=== PATIENT | male | born 1965 | race Caucasian/White ===

== ENCOUNTER 2022-02-24 10:38 | Outpatient (CLI) | payer BC, OTHER | END 2022-02-24 10:39 | disposition home or self-care (01) | LOC: CSHRAD 10:38 | PROVIDERS: ATTEND Family Medicine | DX: R10.9 Unspecified abdominal pain (principal) | CPT/HCPCS: 71120 ==

== ENCOUNTER 2022-03-09 08:15 | Outpatient (CLI) | payer BC, OTHER | END 2022-03-09 08:16 | disposition home or self-care (01) | LOC: CSHULT 08:15 | PROVIDERS: ATTEND Family Medicine | DX: R10.9 Unspecified abdominal pain (principal) | CPT/HCPCS: 76700 ==

== ENCOUNTER 2022-04-15 17:50 | Inpatient (IN) | payer BC, OTHER ==
[2022-04-15 18:35] LABS: #Basophils 0.1 10x3/uL (0.0-0.2); #Eosinphils 0.7 10x3/uL (0.0-0.5); #Monocytes 0.6 10x3/uL (0.0-1.1); #Neutrophils 7.8 10x3/uL (1.5-8.4); %Basophils 0.8 % (0.0-2.0); %Eosinophils 6.5 % (0.0-6.0); %Lymphocytes 15.6 % (18.0-47.0); %Monocytes 5.5 % (0.0-10.0); %Neutrophils 71.4 % (40.0-75.0); Hemoglobin 14.7 g/dL (13.5-17.5); Mean Corpuscular HGB CONC 34.9 g/dL (32.0-36.0); Mean Corpuscular Hemoglobin 29.8 pg (27.0-33.0); Mean Corpuscular Volume 85.2 fl (81.2-95.1); Mean Platelet Volume 11.5 fl (7.4-10.4); Platelet Count 225 10x3/uL (150-450); RBC Distribution Width 12.7 % (11.5-14.5); Red Blood Cell (RBC) Count 4.94 10x6/uL (4.32-5.72); White Blood Cell (WBC) Count 10.9 10x3/uL (3.5-10.5)
[2022-04-15 18:49] LABS: ALT (SGPT) 9 U/L (8-55); AST (SGOT) 13 U/L (5-34); Albumin 3.8 g/dL (3.5-5.0); Alkaline Phosphatase 101 U/L (40-110); Anion Gap 14 mmol/L (10-20); BUN (Urea Nitrogen) 24 mg/dL (8.4-25.7); Bilirubin, Total 0.7 mg/dL (0.2-1.2); Calc. Creatinine Clearance 0 mL/min (70-130); Calcium 9.8 mg/dL (7.8-10.44); Carbon Dioxide 32 mmol/L (22-29); Chloride 96 mmol/L (98-107); Estimated GFR 62; Globulin 3.4 g/dL (2.4-3.5); Glucose 283 mg/dL (70-105); Potassium 3.9 mmol/L (3.5-5.1); Protein, Total 7.2 g/dL (6.0-8.3); Sodium 138 mmol/L (136-145)
[2022-04-15] MEDS ORDERED: hydrALAZINE 20 MG/ML VIAL ONE ×2 (19:05→23:23)
[2022-04-15 19:09] LABS: CKMB 3.6 ng/mL (0-6.6)
[2022-04-15] MEDS ORDERED: Labetalol HCl 100 MG/20 ML VIAL ONE (19:37)
[2022-04-15] MEDS ORDERED: Ondansetron PF 4 MG/2 ML Vial ONE ×2 (19:55→22:28)
[2022-04-15] MEDS ORDERED: Aspirin Chewable 81 MG TAB ONE (20:22)
[2022-04-15] MEDS ORDERED: Acetaminophen 325 MG TAB PO PRN (20:34)
[2022-04-15] MEDS ORDERED: Dextrose 5% in Water 1,000 ML IV PRN (20:36)
[2022-04-15] MEDS ORDERED: HumaLOG 300 UNITS/3 ML VIAL SC PRN (20:36)
[2022-04-15] MEDS ORDERED: Dextrose 50% Abboject 50 ML SYRINGE SLOW IVP PRN (20:36)
[2022-04-15] MEDS ORDERED: Amlodipine 5 MG TAB PO SCH (21:15)
[2022-04-15] MEDS ORDERED: Amlodipine 5 MG TAB ONE (21:34)
[2022-04-15] MEDS: Sodium Chloride 0.9% 1,000 ML IV SCH (21:41)
[2022-04-15] MEDS ORDERED: Meclizine HCl 25 MG TAB PO SCH (22:30)
[2022-04-15] MEDS: Ondansetron PF 4 MG/2 ML Vial IVP PRN (22:32)
[2022-04-15] MEDS ORDERED: Meclizine HCl 25 MG TAB ONE (22:46)
[2022-04-15] MEDS: hydrALAZINE 20 MG/ML VIAL SLOW IVP PRN (23:24)
[2022-04-16] MEDS ORDERED: Promethazine HCl 12.5 MG in Sodium Chloride 0.9% 50 ML IVPB SCH (00:45)
[2022-04-16 01:15] LABS: Troponin I 0.027 ng/mL (< 0.028)
[2022-04-16] MEDS ORDERED: Promethazine HCl 25 MG/ML VIAL ONE (03:21)
[2022-04-16 03:57] LABS: #Basophils 0.1 10x3/uL (0.0-0.2); #Eosinphils 0.2 10x3/uL (0.0-0.5); #Monocytes 0.5 10x3/uL (0.0-1.1); #Neutrophils 10.5 10x3/uL (1.5-8.4); %Basophils 0.6 % (0.0-2.0); %Eosinophils 1.4 % (0.0-6.0); %Lymphocytes 9.9 % (18.0-47.0); %Neutrophils 83.6 % (40.0-75.0); Hemoglobin 14.5 g/dL (13.5-17.5); Mean Corpuscular HGB CONC 34.2 g/dL (32.0-36.0); Mean Corpuscular Hemoglobin 29.7 pg (27.0-33.0); Mean Corpuscular Volume 86.7 fl (81.2-95.1); Platelet Count 255 10x3/uL (150-450); RBC Distribution Width 12.6 % (11.5-14.5); Red Blood Cell (RBC) Count 4.89 10x6/uL (4.32-5.72); White Blood Cell (WBC) Count 12.6 10x3/uL (3.5-10.5)
[2022-04-16 04:17] LABS: Anion Gap 19 mmol/L (10-20); BUN (Urea Nitrogen) 25 mg/dL (8.4-25.7); Calc. Creatinine Clearance 0 mL/min (70-130); Calcium 10.2 mg/dL (7.8-10.44); Carbon Dioxide 28 mmol/L (22-29); Cardiac Risk 6.2 (Less than 4.5); Chloride 98 mmol/L (98-107); Cholesterol 234 mg/dl (< 200 Desired); Estimated GFR 69; Glucose 258 mg/dL (70-105); HDL Cholesterol 38 mg/dL (>60 Neg Risk); LDL Cholesterol, Calculated 172 mg/dL; Potassium 3.9 mmol/L (3.5-5.1); Sodium 141 mmol/L (136-145); Triglycerides 120 mg/dL (Less than 150)
[2022-04-16] MEDS ORDERED: hydrALAZINE 20 MG/ML VIAL ONE ×2 (04:58→10:16)
[2022-04-16] MEDS: hydrALAZINE 20 MG/ML VIAL SLOW IVP PRN ×3 (05:02→16:32)
[2022-04-16 05:37] VITALS: BMI 40.6
[2022-04-16] MEDS: HumaLOG 300 UNITS/3 ML VIAL SC PRN ×3 (05:41→16:32)
[2022-04-16] MEDS ORDERED: HumaLOG 300 UNITS/3 ML VIAL ONE (05:43)
[2022-04-16 07:05] LABS: Magnesium 1.6 mg/dL (1.6-2.6)
[2022-04-16] MEDS ORDERED: Amlodipine 5 MG TAB PO SCH ×2 (09:00→21:00)
[2022-04-16] MEDS ORDERED: Magnesium 2 GM/50 ML(in water) 2 GM in Premix Bag 1 BAG IVPB SCH ×2 (09:00→18:00)
[2022-04-16] MEDS ORDERED: Enoxaparin Sodium 40 MG/0.4 ML SYRINGE ONE (10:16)
[2022-04-16] MEDS ORDERED: Amlodipine 5 MG TAB ONE (10:17)
[2022-04-16] MEDS ORDERED: Magnesium 2 GM/50 ML BAG (IN WATER) ONE (10:17)
[2022-04-16] MEDS: Enoxaparin Sodium 40 MG/0.4 ML SYRINGE SC SCH (10:30)
[2022-04-16] MEDS: Sodium Chloride 0.9% 1,000 ML IV SCH ×2 (11:30→18:34)
[2022-04-16 11:59] LABS: Hemoglobin A1c 8.6 % (4.0-6.0)
[2022-04-16 15:39] LABS: Bilirubin Neg (Negative); Blood, Urine Negative (Negative); Clarity Clear (Clear); Glucose, Urine (Dipstick) 250 mg/dL (Negative); Ketone, Urine 15 mg/dL (Negative); Leukocyte Negative (Negative); Nitrite Negative (Negative); Protein, Urine (Dipstick) 500 mg/dl (Neg-Trace)
[2022-04-16 15:56] LABS: Bacteria/HPF 1+ HPF (None Seen); Mucous/LPF 1+ LPF (<2+); RBC/HPF None Seen HPF (0-3); Squamous Epithelial 0-3 HPF (0-3); WBC/HPF 0-3 HPF (0-3)
[2022-04-16] MEDS: Ondansetron PF 4 MG/2 ML Vial IVP PRN (17:03)
[2022-04-16] MEDS ORDERED: NIFEdipine XL 60 MG TAB PO SCH (19:00)
[2022-04-16] MEDS ORDERED: Lantus 1000 UNITS/10 ML VIAL SC SCH (21:00)
[2022-04-16] MEDS: Lisinopril 20 MG TAB PO SCH (21:20)
[2022-04-16] MEDS: Atorvastatin Calcium 40 MG TAB PO SCH (21:20)
[2022-04-16] MEDS: HumaLOG 300 UNITS/3 ML VIAL SC SCH (21:34)
[2022-04-17 04:09] LABS: Anion Gap 12 mmol/L (10-20); BUN (Urea Nitrogen) 22 mg/dL (8.4-25.7); Calc. Creatinine Clearance 148 mL/min (70-130); Carbon Dioxide 32 mmol/L (22-29); Chloride 100 mmol/L (98-107); Estimated GFR 80; Glucose 124 mg/dL (70-105); Magnesium 1.9 mg/dL (1.6-2.6); Potassium 3.1 mmol/L (3.5-5.1); Sodium 141 mmol/L (136-145)
[2022-04-17 04:11] LABS: #Basophils 0.1 10x3/uL (0.0-0.2); #Eosinphils 0.5 10x3/uL (0.0-0.5); #Monocytes 1.1 10x3/uL (0.0-1.1); #Neutrophils 10.7 10x3/uL (1.5-8.4); %Basophils 0.6 % (0.0-2.0); %Eosinophils 3.3 % (0.0-6.0); %Monocytes 7.5 % (0.0-10.0); %Neutrophils 75.1 % (40.0-75.0); Hemoglobin 14.4 g/dL (13.5-17.5); Mean Corpuscular HGB CONC 33.8 g/dL (32.0-36.0); Mean Corpuscular Volume 88.8 fl (81.2-95.1); Mean Platelet Volume 11.6 fl (7.4-10.4); Platelet Count 259 10x3/uL (150-450); White Blood Cell (WBC) Count 14.3 10x3/uL (3.5-10.5)
[2022-04-17] MEDS: hydrALAZINE 20 MG/ML VIAL SLOW IVP PRN ×2 (05:17→23:32)
[2022-04-17] MEDS ORDERED: Potassium Chloride 20 MEQ TAB PO SCH (08:00)
[2022-04-17] MEDS ORDERED: Lantus 1000 UNITS/10 ML VIAL SC SCH (09:00)
[2022-04-17] MEDS ORDERED: NIFEdipine XL 60 MG TAB PO SCH (09:00)
[2022-04-17] MEDS ORDERED: Lisinopril 10 MG TAB PO SCH (09:00)
[2022-04-17] MEDS: Enoxaparin Sodium 40 MG/0.4 ML SYRINGE SC SCH (10:17)
[2022-04-17] MEDS: Aspirin 81 mg Enteric Coated Tablet PO SCH (10:18)
[2022-04-17] MEDS: Gabapentin 300 MG CAP PO SCH (10:18)
[2022-04-17] MEDS: Lantus 1000 UNITS/10 ML VIAL SC SCH ×2 (10:19→10:34)
[2022-04-17] MEDS: Lisinopril 20 MG TAB PO SCH ×2 (10:20→23:32)
[2022-04-17] MEDS ORDERED: NIFEdipine XL 30 MG TAB PO SCH (11:15)
[2022-04-17] MEDS ORDERED: HYDROcodone/Acetaminophen 5/325 mg Tablet PO SCH (11:15)
[2022-04-17] MEDS ORDERED: Iopamidol 370 76% 100 ML VIAL ONE (13:16)
[2022-04-17] MEDS: Atorvastatin Calcium 40 MG TAB PO SCH (23:32)
[2022-04-17] MEDS: HYDROcodone/Acetaminophen 5/325 mg Tablet PO PRN (23:43)
[2022-04-17] MEDS: HumaLOG 300 UNITS/3 ML VIAL SC SCH (23:44)
[2022-04-18] MEDS: Sodium Chloride 0.9% 1,000 ML IV SCH (01:57)
[2022-04-18] MEDS: HumaLOG 300 UNITS/3 ML VIAL SC PRN ×3 (06:17→16:43)
[2022-04-18] MEDS ORDERED: Potassium Chloride 20 MEQ TAB PO SCH (08:45)
[2022-04-18] MEDS ORDERED: NIFEdipine XL 90 MG TAB PO SCH (09:00)
[2022-04-18] MEDS: Gabapentin 300 MG CAP PO SCH (10:33)
[2022-04-18] MEDS: NIFEdipine XL 60 MG TAB PO SCH (10:34)
[2022-04-18] MEDS: Aspirin 81 mg Enteric Coated Tablet PO SCH (10:35)
[2022-04-18] MEDS: Lisinopril 20 MG TAB PO SCH ×2 (10:35→22:54)
[2022-04-18] MEDS: Enoxaparin Sodium 40 MG/0.4 ML SYRINGE SC SCH (10:35)
[2022-04-18] MEDS: Lantus 1000 UNITS/10 ML VIAL SC SCH (10:36)
[2022-04-18] MEDS: Carvedilol 6.25 MG TAB PO SCH (16:43)
[2022-04-18] MEDS: hydrALAZINE 20 MG/ML VIAL SLOW IVP PRN (16:44)
[2022-04-18] MEDS: HumaLOG 300 UNITS/3 ML VIAL SC SCH (22:53)
[2022-04-18] MEDS: Atorvastatin Calcium 40 MG TAB PO SCH (22:54)
[2022-04-18] MEDS: HYDROcodone/Acetaminophen 5/325 mg Tablet PO PRN (22:54)
[2022-04-19 06:48] LABS: Anion Gap 12 mmol/L (10-20); BUN (Urea Nitrogen) 20 mg/dL (8.4-25.7); Calc. Creatinine Clearance 145 mL/min (70-130); Calcium 9.7 mg/dL (7.8-10.44); Carbon Dioxide 28 mmol/L (22-29); Chloride 102 mmol/L (98-107); Estimated GFR 78; Glucose 133 mg/dL (70-105); Potassium 3.1 mmol/L (3.5-5.1); Sodium 139 mmol/L (136-145)
[2022-04-19] MEDS: Enoxaparin Sodium 40 MG/0.4 ML SYRINGE SC SCH (08:53)
[2022-04-19] MEDS: Carvedilol 6.25 MG TAB PO SCH ×2 (08:54→17:19)
[2022-04-19] MEDS: hydrALAZINE 20 MG/ML VIAL SLOW IVP PRN ×2 (08:54→23:48)
[2022-04-19] MEDS: Aspirin 81 mg Enteric Coated Tablet PO SCH (08:54)
[2022-04-19] MEDS: Gabapentin 300 MG CAP PO SCH (08:54)
[2022-04-19] MEDS: Lisinopril 20 MG TAB PO SCH ×2 (08:54→23:14)
[2022-04-19] MEDS: Lantus 1000 UNITS/10 ML VIAL SC SCH (08:55)
[2022-04-19] MEDS: NIFEdipine XL 60 MG TAB PO SCH (08:56)
[2022-04-19] MEDS: HumaLOG 300 UNITS/3 ML VIAL SC PRN (13:01)
[2022-04-19] MEDS: Atorvastatin Calcium 40 MG TAB PO SCH (23:14)
[2022-04-19] MEDS: HYDROcodone/Acetaminophen 5/325 mg Tablet PO PRN (23:14)
[2022-04-19] MEDS: HumaLOG 300 UNITS/3 ML VIAL SC SCH (23:16)
[2022-04-20] MEDS: HumaLOG 300 UNITS/3 ML VIAL SC PRN (06:02)
[2022-04-20] MEDS: Lisinopril 20 MG TAB PO SCH (09:30)
[2022-04-20] MEDS: NIFEdipine XL 60 MG TAB PO SCH (09:30)
[2022-04-20] MEDS: Aspirin 81 mg Enteric Coated Tablet PO SCH (09:30)
[2022-04-20] MEDS: Carvedilol 6.25 MG TAB PO SCH (09:30)
[2022-04-20] MEDS: Lantus 1000 UNITS/10 ML VIAL SC SCH (09:30)
[2022-04-20] MEDS: Enoxaparin Sodium 40 MG/0.4 ML SYRINGE SC SCH (09:30)
[2022-04-20] MEDS: Gabapentin 300 MG CAP PO SCH (09:30)
[2022-04-20 12:25] VITALS: BP 179/80; TEMP 98.1
== END 2022-04-20 13:15 | disposition home health service (06) | DRG 65 ==
LOC: CSHERS 17:50 → CSHERHOLD 20:26 → INTOOBSV 20:26 → CSHTELE 04-16 16:30 → OBSVTOIN 04-17 13:36
PROVIDERS: ADMIT Internal Medicine; ATTEND Family Medicine
DX: I63.9 Cerebral infarction, unspecified (principal); N17.9 Acute kidney failure, unspecified; I24.8 Other forms of acute ischemic heart disease; I16.1 Hypertensive emergency; I50.32 Chronic diastolic (congestive) heart failure; I11.0 Hypertensive heart disease with heart failure; I16.0 Hypertensive urgency; R77.8 Other specified abnormalities of plasma proteins; E11.59 Type 2 diabetes mellitus with other circulatory complications; Z20.822 Contact with and (suspected) exposure to COVID-19; K59.00 Constipation, unspecified; Z91.14 Patient's other noncompliance with medication regimen; Z79.84 Long term (current) use of oral hypoglycemic drugs; Z79.4 Long term (current) use of insulin; Z79.899 Other long term (current) drug therapy; Z95.0 Presence of cardiac pacemaker; Z87.891 Personal history of nicotine dependence
CPT/HCPCS: 36415; 36416; 70450; 70496; 70498; 70551; 71045; 80048; 80053; 80061; 81003; 81015; 82553; 83036; 83735; 84443; 84484; 85025; 93005; 93306; 94760; 96372; 96374; 96375; 96376; G0378; J0360; J1650; J1815; J2405; J2550; J3475; J7050; Q9967; U0003; U0005

== ENCOUNTER 2022-04-24 15:38 | Inpatient (IN) | payer BC, OTHER ==
[2022-04-24 16:06] LABS: #Basophils 0.1 10x3/uL (0.0-0.2); #Eosinphils 0.4 10x3/uL (0.0-0.5); #Monocytes 1.1 10x3/uL (0.0-1.1); #Neutrophils 6.6 10x3/uL (1.5-8.4); %Basophils 0.9 % (0.0-2.0); %Eosinophils 4.2 % (0.0-6.0); %Lymphocytes 9.6 % (18.0-47.0); %Monocytes 12.5 % (0.0-10.0); %Neutrophils 72.6 % (40.0-75.0); Hemoglobin 14.3 g/dL (13.5-17.5); Mean Corpuscular HGB CONC 34.3 g/dL (32.0-36.0); Mean Corpuscular Hemoglobin 29.8 pg (27.0-33.0); Mean Corpuscular Volume 86.9 fl (81.2-95.1); Mean Platelet Volume 12.4 fl (7.4-10.4); Platelet Count 240 10x3/uL (150-450); RBC Distribution Width 12.4 % (11.5-14.5); White Blood Cell (WBC) Count 9.1 10x3/uL (3.5-10.5)
[2022-04-24 16:25] LABS: INR-International Normal Ratio 0.9; PTT 27.2 sec (22.0-33.0); Prothrombin Time 10.2 sec (9.5-12.1)
[2022-04-24 16:27] LABS: ALT (SGPT) 14 U/L (8-55); AST (SGOT) 13 U/L (5-34); Albumin 3.8 g/dL (3.5-5.0); Alkaline Phosphatase 98 U/L (40-110); Anion Gap 14 mmol/L (10-20); BUN (Urea Nitrogen) 30 mg/dL (8.4-25.7); Bilirubin, Total 0.3 mg/dL (0.2-1.2); Calc. Creatinine Clearance 0 mL/min (70-130); Calcium 10.1 mg/dL (7.8-10.44); Carbon Dioxide 25 mmol/L (22-29); Chloride 100 mmol/L (98-107); Estimated GFR 45; Globulin 3.2 g/dL (2.4-3.5); Glucose 301 mg/dL (70-105); Potassium 4.4 mmol/L (3.5-5.1); Sodium 135 mmol/L (136-145)
[2022-04-24 17:11] LABS: CKMB 2.8 ng/mL (0-6.6)
[2022-04-24] MEDS ORDERED: hydrALAZINE 20 MG/ML VIAL ONE (19:50)
[2022-04-24] MEDS ORDERED: Aspirin Chewable 81 MG TAB ONE (19:50)
[2022-04-24] MEDS ORDERED: Calcium Carbonate 500 MG ChewTAB PO PRN (19:54)
[2022-04-24] MEDS ORDERED: Dextrose 5% in Water 1,000 ML IV PRN (19:54)
[2022-04-24] MEDS ORDERED: Ondansetron PF 4 MG/2 ML Vial IVP PRN (19:54)
[2022-04-24] MEDS ORDERED: Senokot S 8.6-50 MG TAB PO PRN (19:54)
[2022-04-24] MEDS ORDERED: Dextrose 50% Abboject 50 ML SYRINGE SLOW IVP PRN (19:54)
[2022-04-24] MEDS ORDERED: Sodium Chloride 0.9% 250 ML IV SCH (20:15)
[2022-04-24 20:24] LABS: Bilirubin Neg (Negative); Blood, Urine Negative (Negative); Clarity Clear (Clear); Glucose, Urine (Dipstick) 250 mg/dL (Negative); Ketone, Urine Negative (Negative); Leukocyte Negative (Negative); Nitrite Negative (Negative); Protein, Urine (Dipstick) 500 mg/dl (Neg-Trace); Urobilinogen Normal mg/dL (Less than 2)
[2022-04-24] MEDS ORDERED: Carvedilol 12.5 MG TAB PO SCH (20:30)
[2022-04-24 20:39] LABS: Bacteria/HPF 1+ HPF (None Seen); RBC/HPF None Seen HPF (0-3); Renal Epithelial 0-3 HPF (None Seen); WBC/HPF 0-3 HPF (0-3)
[2022-04-24 20:49] LABS: CKMB 2.6 ng/mL (0-6.6)
[2022-04-24 20:52] LABS: SARS-CoV-2 NAA Rapid Test Not Detected (NotDetected)
[2022-04-24 21:35] VITALS: BMI 38.5
[2022-04-24] MEDS: Atorvastatin Calcium 40 MG TAB PO SCH (21:45)
[2022-04-25] MEDS: hydrALAZINE 20 MG/ML VIAL SLOW IVP PRN (02:28)
[2022-04-25] MEDS: Acetaminophen 325 MG TAB PO PRN ×2 (03:48→21:06)
[2022-04-25 05:10] LABS: Anion Gap 13 mmol/L (10-20); BUN (Urea Nitrogen) 31 mg/dL (8.4-25.7); Calc. Creatinine Clearance 118 mL/min (70-130); Calcium 10.1 mg/dL (7.8-10.44); Carbon Dioxide 28 mmol/L (22-29); Chloride 100 mmol/L (98-107); Estimated GFR 61; Glucose 242 mg/dL (70-105); Potassium 3.9 mmol/L (3.5-5.1); Sodium 137 mmol/L (136-145)
[2022-04-25] MEDS: HumaLOG 300 UNITS/3 ML VIAL SC PRN ×2 (05:20→17:04)
[2022-04-25] MEDS ORDERED: NIFEdipine XL 60 MG TAB PO SCH ×2 (05:30→09:00)
[2022-04-25] MEDS ORDERED: Carvedilol 12.5 MG TAB PO SCH ×2 (05:30→08:00)
[2022-04-25] MEDS: Aspirin 81 mg Enteric Coated Tablet PO SCH (08:57)
[2022-04-25] MEDS: Clopidogrel Bisulfate 75 MG TAB PO SCH (08:57)
[2022-04-25] MEDS: Enoxaparin Sodium 40 MG/0.4 ML SYRINGE SC SCH (08:58)
[2022-04-25] MEDS: Gabapentin 300 MG CAP PO SCH (08:58)
[2022-04-25] MEDS: Lantus 1000 UNITS/10 ML VIAL SC SCH (09:12)
[2022-04-25] MEDS: Carvedilol 12.5 MG TAB PO SCH (17:04)
[2022-04-25 17:32] LABS: D-Dimer Test 0.58 mg/L FEU (0.19-0.50); PTT 28.4 sec (22.0-33.0); Prothrombin Time 10.7 sec (9.5-12.1)
[2022-04-25] MEDS ORDERED: Melatonin 3 MG TAB PO SCH (20:30)
[2022-04-25] MEDS: Atorvastatin Calcium 40 MG TAB PO SCH (21:05)
[2022-04-26] MEDS: HumaLOG 300 UNITS/3 ML VIAL SC PRN ×2 (00:35→05:00)
[2022-04-26] MEDS: hydrALAZINE 20 MG/ML VIAL SLOW IVP PRN ×3 (00:37→21:11)
[2022-04-26] MEDS: Enoxaparin Sodium 40 MG/0.4 ML SYRINGE SC SCH (08:31)
[2022-04-26] MEDS: Carvedilol 12.5 MG TAB PO SCH ×2 (08:32→17:26)
[2022-04-26] MEDS: NIFEdipine XL 60 MG TAB PO SCH (08:32)
[2022-04-26] MEDS: Clopidogrel Bisulfate 75 MG TAB PO SCH (08:32)
[2022-04-26] MEDS: Aspirin 81 mg Enteric Coated Tablet PO SCH (08:32)
[2022-04-26] MEDS: Gabapentin 300 MG CAP PO SCH (08:33)
[2022-04-26] MEDS: Lantus 1000 UNITS/10 ML VIAL SC SCH (08:33)
[2022-04-26 13:03] LABS: Factor VIII Test 159.1 % ACTIVE (56-157)
[2022-04-26 13:08] LABS: Protein C Activity 125 % (78-152)
[2022-04-26] MEDS ORDERED: Cepastat Lozenges 1 LOZ PO SCH (18:00)
[2022-04-26] MEDS: Atorvastatin Calcium 40 MG TAB PO SCH (21:11)
[2022-04-26] MEDS: Melatonin 3 MG TAB PO PRN (21:11)
[2022-04-27] MEDS: Cepastat Lozenges 1 LOZ PO PRN ×4 (00:16→18:21)
[2022-04-27 05:59] LABS: Anion Gap 14 mmol/L (10-20); BUN (Urea Nitrogen) 24 mg/dL (8.4-25.7); Calc. Creatinine Clearance 155 mL/min (70-130); Carbon Dioxide 25 mmol/L (22-29); Chloride 101 mmol/L (98-107); Estimated GFR 84; Glucose 173 mg/dL (70-105); Potassium 3.4 mmol/L (3.5-5.1); Sodium 137 mmol/L (136-145)
[2022-04-27 06:02] LABS: #Basophils 0.1 10x3/uL (0.0-0.2); #Eosinphils 0.3 10x3/uL (0.0-0.5); #Monocytes 1.3 10x3/uL (0.0-1.1); #Neutrophils 6.8 10x3/uL (1.5-8.4); %Basophils 0.7 % (0.0-2.0); %Eosinophils 2.8 % (0.0-6.0); %Lymphocytes 11.2 % (18.0-47.0); %Monocytes 13.6 % (0.0-10.0); %Neutrophils 71.3 % (40.0-75.0); Hemoglobin 14.2 g/dL (13.5-17.5); Mean Corpuscular Hemoglobin 29.9 pg (27.0-33.0); Mean Corpuscular Volume 85.5 fl (81.2-95.1); Platelet Count 215 10x3/uL (150-450); RBC Distribution Width 12.7 % (11.5-14.5); Red Blood Cell (RBC) Count 4.75 10x6/uL (4.32-5.72); White Blood Cell (WBC) Count 9.6 10x3/uL (3.5-10.5)
[2022-04-27 06:14] LABS: HEX PHOS LA Tube 1 45.8 SEC; HEX PHOS LA Tube 2 40.7 SEC; Hexagonal Phospholipid Neut 5.1 SEC (0-8.0)
[2022-04-27] MEDS: Aspirin 81 mg Enteric Coated Tablet PO SCH (10:27)
[2022-04-27] MEDS: Gabapentin 300 MG CAP PO SCH (10:27)
[2022-04-27] MEDS: NIFEdipine XL 60 MG TAB PO SCH (10:28)
[2022-04-27] MEDS: Carvedilol 12.5 MG TAB PO SCH ×2 (10:28→16:40)
[2022-04-27] MEDS: Enoxaparin Sodium 40 MG/0.4 ML SYRINGE SC SCH (10:28)
[2022-04-27] MEDS: Clopidogrel Bisulfate 75 MG TAB PO SCH (10:28)
[2022-04-27] MEDS: Lantus 1000 UNITS/10 ML VIAL SC SCH (10:31)
[2022-04-27] MEDS: Acetaminophen 325 MG TAB PO PRN (10:41)
[2022-04-27] MEDS: Guaifenesin DM 100-10/5 ML UDCUP PO PRN (18:20)
[2022-04-27] MEDS: Atorvastatin Calcium 40 MG TAB PO SCH (21:18)
[2022-04-27] MEDS: metFORMIN 500 MG TAB PO SCH (21:18)
[2022-04-27] MEDS: Melatonin 3 MG TAB PO PRN (21:18)
[2022-04-28] MEDS: Cepastat Lozenges 1 LOZ PO PRN ×2 (00:24→13:17)
[2022-04-28] MEDS: Guaifenesin DM 100-10/5 ML UDCUP PO PRN (02:55)
[2022-04-28 08:14] LABS: #Basophils 0.1 10x3/uL (0.0-0.2); #Eosinphils 0.6 10x3/uL (0.0-0.5); #Monocytes 1.3 10x3/uL (0.0-1.1); #Neutrophils 6.3 10x3/uL (1.5-8.4); %Basophils 0.6 % (0.0-2.0); %Eosinophils 5.8 % (0.0-6.0); %Lymphocytes 16.4 % (18.0-47.0); %Neutrophils 63.7 % (40.0-75.0); Mean Corpuscular HGB CONC 33.9 g/dL (32.0-36.0); Mean Corpuscular Hemoglobin 29.8 pg (27.0-33.0); Mean Corpuscular Volume 87.9 fl (81.2-95.1); Mean Platelet Volume 11.7 fl (7.4-10.4); Platelet Count 209 10x3/uL (150-450); RBC Distribution Width 12.4 % (11.5-14.5); White Blood Cell (WBC) Count 9.9 10x3/uL (3.5-10.5)
[2022-04-28 08:26] LABS: Anion Gap 13 mmol/L (10-20); BUN (Urea Nitrogen) 25 mg/dL (8.4-25.7); Calc. Creatinine Clearance 179 mL/min (70-130); Calcium 9.7 mg/dL (7.8-10.44); Carbon Dioxide 28 mmol/L (22-29); Chloride 100 mmol/L (98-107); Estimated GFR 100; Glucose 136 mg/dL (70-105); Potassium 3.2 mmol/L (3.5-5.1); Sodium 138 mmol/L (136-145)
[2022-04-28] MEDS: Enoxaparin Sodium 40 MG/0.4 ML SYRINGE SC SCH (08:31)
[2022-04-28] MEDS: metFORMIN 500 MG TAB PO SCH (08:31)
[2022-04-28] MEDS: NIFEdipine XL 60 MG TAB PO SCH (08:31)
[2022-04-28] MEDS: Lantus 1000 UNITS/10 ML VIAL SC SCH (08:31)
[2022-04-28] MEDS: Carvedilol 12.5 MG TAB PO SCH (08:32)
[2022-04-28] MEDS: Gabapentin 300 MG CAP PO SCH (08:32)
[2022-04-28] MEDS: Aspirin 81 mg Enteric Coated Tablet PO SCH (08:32)
[2022-04-28] MEDS: Clopidogrel Bisulfate 75 MG TAB PO SCH (08:32)
[2022-04-28] MEDS ORDERED: Potassium Chloride 20 MEQ TAB PO SCH (11:45)
[2022-04-28 11:50] VITALS: BP 135/66; TEMP 98.8
[2022-04-28] MEDS: HumaLOG 300 UNITS/3 ML VIAL SC PRN (12:25)
[2022-04-30 18:11] LABS: Cardiolipin IgA Ab 3.2 APL-U/mL (<14 Negative); Cardiolipin IgG Ab 0.7 GPL-U/mL (<10 Negative); Cardiolipin IgM Ab 1.7 MPL-U/mL (<10 Negative); EliA APS New Method **** NEW METHOD ****
[2022-05-01 15:37] LABS: Activated Protein C Resistance 2.3 ratio (.)
== END 2022-04-28 14:21 | disposition home or self-care (01) | DRG 65 ==
LOC: CSHERS 15:38 → CSHTELE 21:12 → INTOOBSV 21:12 → UNDOADMOB 21:12 → OBSVTOIN 21:12 → CSHTELE 04-26 16:33
PROVIDERS: ADMIT Student in an Organized Health Care Education/Training Program; ATTEND Internal Medicine
DX: I63.9 Cerebral infarction, unspecified (principal); G61.0 Guillain-Barre syndrome; I50.32 Chronic diastolic (congestive) heart failure; N17.9 Acute kidney failure, unspecified; G81.91 Hemiplegia, unspecified affecting right dominant side; E87.1 Hypo-osmolality and hyponatremia; I13.0 Hypertensive heart and chronic kidney disease with heart failure and stage 1 through stage 4 chronic kidney disease, or unspecified chronic kidney disease; E78.5 Hyperlipidemia, unspecified; E11.22 Type 2 diabetes mellitus with diabetic chronic kidney disease; N18.2 Chronic kidney disease, stage 2 (mild); E11.65 Type 2 diabetes mellitus with hyperglycemia; R29.810 Facial weakness; I16.0 Hypertensive urgency; I65.1 Occlusion and stenosis of basilar artery; E11.51 Type 2 diabetes mellitus with diabetic peripheral angiopathy without gangrene; I49.5 Sick sinus syndrome; E87.6 Hypokalemia; Z20.822 Contact with and (suspected) exposure to COVID-19; Z95.0 Presence of cardiac pacemaker; Z79.84 Long term (current) use of oral hypoglycemic drugs; Z87.891 Personal history of nicotine dependence; Z79.4 Long term (current) use of insulin; Z79.899 Other long term (current) drug therapy
CPT/HCPCS: 36415; 36416; 70450; 70551; 71045; 80048; 81003; 81015; 82553; 83090; 84484; 85025; 85240; 85300; 85303; 85305; 85307; 85379; 85598; 85610; 85730; 86147; 93005; 93306; 96372; 96376; G0378; J0360; J1650; J1815; J7030; U0002

== ENCOUNTER 2023-09-05 15:45 | Emergency (ER) | payer BC, OTHER | END 2023-09-05 17:58 | disposition home or self-care (01) | LOC: CSHERS 15:45 | DX: R47.1 Dysarthria and anarthria (principal); I11.0 Hypertensive heart disease with heart failure; I50.9 Heart failure, unspecified; E11.9 Type 2 diabetes mellitus without complications; Z79.4 Long term (current) use of insulin; Z87.891 Personal history of nicotine dependence | CPT/HCPCS: 70450 ==